=== PATIENT | female | born 1980 | race Asian ===

== ENCOUNTER 2021-12-23 12:54 | Emergency (ER) | payer OTHER ==
[~2021-12-23] VITALS: Ht 149.9 cm; Wt 50.9 kg
[2021-12-23 12:55] VITALS: BP 142/89
[2021-12-23] MEDS ORDERED: LIDOCAINE 1% 10 ML VIAL PERC ONE (13:15)
[2021-12-23] MEDS ORDERED: BUPIVACAINE HCL/PF 0.25% 10 ML VIAL PERC ONE (13:15)
[2021-12-23] MEDS ORDERED: PERTUSS(ACELL),DIPH,TET VAC/PF 0.5 ML SYRINGE IM. ONE (13:15)
[2021-12-23] MEDS ORDERED: BACITRACIN 0.9 GM PACKET OINTMENT TP ONE (14:15)
== END 2021-12-23 14:45 | disposition home or self-care (01) ==
LOC: EMS 12:54
DX: S61.012A Laceration without foreign body of left thumb without damage to nail, initial encounter (principal); W26.0XXA Contact with knife, initial encounter; Y93.89 Activity, other specified; Y92.89 Other specified places as the place of occurrence of the external cause; Y99.8 Other external cause status
CPT/HCPCS: 12001; 90471; 90715; 99283; J3490 ×2